=== PATIENT | female | born 1945 | race Caucasian/White ===

== ENCOUNTER 2018-01-21 10:55 | Emergency (ER) | payer MEDICARE, MEDICAID ==
[~2018-01-21] VITALS: Ht 172.7 cm; Wt 148.6 kg
[~2018-01-21 10:55] MED LIST: ASPI-515 PO; B 12 PO; BUPR100T6 PO; BUPR300T49 PO; FLUC200T4 PO; HYDR-3343 PO; LEVO50TA PO; LEVO75TA5 PO; LOSA25TA5 PO; OMEP20TA62 PO; POTA10CA PO; SERT25TA PO; SIMV20TA PO; SULF1TAB24 PO; THYR30TA PO; TRAM50TA2 PO; ZOLP-413 PO
[2018-01-21] MEDS ORDERED: ALBUTEROL/IPRATROPIUM 2.5MG/0.5MG, 3 ML NPPB ONE (12:00)
[2018-01-21 12:36] LABS: RAPID INFLUENZA A Negative (Negative); RAPID INFLUENZA B Negative (Negative)
[2018-01-21 13:04] LABS: BASOPHILS # (AUTO) 0.03 x10^3/uL (0-0.1); BASOPHILS % (AUTO) 0 % (0-1); EOSINOPHILS % (AUTO) 2 % (1-7); LYMPHOCYTES # (AUTO) 1.47 x10^3/uL (1-3.4); LYMPHOCYTES % (AUTO) 14 % (22-44); MD NO; MEAN CORPUSCULAR HEMOGLOBIN 26.5 pg (27.0-34.8); MEAN CORPUSCULAR HGB CONC 32.8 g/dL (32.4-35.8); MEAN CORPUSCULAR VOLUME 80.6 fL (80-100); MEAN PLATELET VOLUME 10.2 fL (7.4-10.4); MONOCYTES # (AUTO) 0.49 x10^3/uL (0.2-0.8); MONOCYTES % (AUTO) 5 % (2-9); NEUTROPHILS # (AUTO) 8.42 x10^3/uL (1.8-6.8); NEUTROPHILS % (AUTO) 79 % (42-75); PLATELET COUNT 293 x10^3/uL (130-400); RED BLOOD COUNT 4.36 x10^6/uL (3.82-5.3); RED CELL DISTRIBUTION WIDTH 18.1 % (9.6-15.2)
[2018-01-21] MEDS ORDERED: ALBUTEROL/IPRATROPIUM 2.5MG/0.5MG, 3 ML ONE (13:06)
[2018-01-21 13:16] LABS: ALBUMIN 3.1 g/dL (3.4-5.0); ANION GAP 8 mmol/L (5-15); CALCIUM 8.2 mg/dL (8.5-10.1); CHLORIDE 103 mmol/L (98-107)
[2018-01-21 13:23] LABS: ALANINE AMINOTRANSFERASE 14 U/L (12-78); ALKALINE PHOSPHATASE 99 U/L (45-117); BILIRUBIN,TOTAL 0.6 mg/dL (0.2-1.0); CREATININE 1.22 mg/dL (0.55-1.02); TOTAL PROTEIN 8.2 g/dL (6.4-8.2)
[2018-01-21 14:02] VITALS: BP 153/63
== END 2018-01-21 14:12 | disposition home or self-care (01) ==
LOC: ED 14:01
DX: J98.01 Acute bronchospasm (principal); J18.1 Lobar pneumonia, unspecified organism; I10 Essential (primary) hypertension; K21.9 Gastro-esophageal reflux disease without esophagitis
CPT/HCPCS: 36415; 71046; 80053; 83880; 85025; 87081; 87400; 87880; 94640; 99285; J7620

== ENCOUNTER 2018-07-10 20:36 | Emergency (ER) | payer MEDICARE, MEDICAID ==
[~2018-07-10] VITALS: Ht 170.2 cm; Wt 130.0 kg
[2018-07-10 22:10] LABS: BASOPHILS # (AUTO) 0.03 x10^3/uL (0-0.1); BASOPHILS % (AUTO) 0 % (0-1); EOSINOPHILS # (AUTO) 0.09 x10^3/uL (0-0.4); EOSINOPHILS % (AUTO) 1 % (1-7); LYMPHOCYTES % (AUTO) 11 % (22-44); MD NO; MEAN CORPUSCULAR HEMOGLOBIN 27.1 pg (27.0-34.8); MEAN CORPUSCULAR HGB CONC 32.9 g/dL (32.4-35.8); MEAN CORPUSCULAR VOLUME 82.6 fL (80-100); MEAN PLATELET VOLUME 10.8 fL (7.4-10.4); MONOCYTES % (AUTO) 6 % (2-9); NEUTROPHILS % (AUTO) 81 % (42-75); PLATELET COUNT 202 x10^3/uL (130-400); RED BLOOD COUNT 3.91 x10^6/uL (3.82-5.3); RED CELL DISTRIBUTION WIDTH 17.4 % (9.6-15.2)
[2018-07-10 22:14] LABS: ALANINE AMINOTRANSFERASE 11 U/L (12-78); ALBUMIN 2.9 g/dL (3.4-5.0); ANION GAP 6 mmol/L (5-15); CALCIUM 8.4 mg/dL (8.5-10.1); CHLORIDE 105 mmol/L (98-107); CREATININE 1.23 mg/dL (0.55-1.02)
[2018-07-10 22:18] LABS: ALKALINE PHOSPHATASE 64 U/L (45-117); BILIRUBIN,TOTAL 1.2 mg/dL (0.2-1.0); TOTAL PROTEIN 6.9 g/dL (6.4-8.2); TROPONIN I < 0.015 ng/mL (0.000-0.045)
[2018-07-10] MEDS ORDERED: OMNIPAQUE 350 MG/ML, 100ML BOTTLE ONE (22:58)
[2018-07-11 00:58] VITALS: BP 143/51
== END 2018-07-11 01:00 | disposition home or self-care (01) ==
LOC: ED 07-11 00:54
DX: R42 Dizziness and giddiness (principal); E03.9 Hypothyroidism, unspecified; K21.9 Gastro-esophageal reflux disease without esophagitis; I10 Essential (primary) hypertension; F32.9 Major depressive disorder, single episode, unspecified
CPT/HCPCS: 36415; 70450; 70496; 70498; 80053; 84484; 85025; 93005; 99285; Q9967

== ENCOUNTER 2019-02-08 07:50 | Emergency (ER) | payer MEDICARE, MEDICAID ==
[~2019-02-08] VITALS: Ht 172.7 cm; Wt 158.8 kg
[~2019-02-08 07:50] MED LIST changes: +LOSA25TA25 PO; -LOSA25TA5 PO
[2019-02-08 08:36] LABS: BASOPHILS # (AUTO) 0.04 x10^3/uL (0-0.1); BASOPHILS % (AUTO) 1 % (0-1); EOSINOPHILS # (AUTO) 0.68 x10^3/uL (0-0.4); EOSINOPHILS % (AUTO) 8 % (1-7); LYMPHOCYTES # (AUTO) 2.12 x10^3/uL (1-3.4); LYMPHOCYTES % (AUTO) 26 % (22-44); MD NO; MEAN CORPUSCULAR HEMOGLOBIN 24.9 pg (27.0-34.8); MEAN CORPUSCULAR HGB CONC 31.4 g/dL (32.4-35.8); MEAN CORPUSCULAR VOLUME 79.5 fL (80-100); MEAN PLATELET VOLUME 9.3 fL (7.4-10.4); MONOCYTES # (AUTO) 0.61 x10^3/uL (0.2-0.8); MONOCYTES % (AUTO) 8 % (2-9); NEUTROPHILS # (AUTO) 4.68 x10^3/uL (1.8-6.8); NEUTROPHILS % (AUTO) 58 % (42-75); PLATELET COUNT 270 x10^3/uL (130-400); RED BLOOD COUNT 4.01 x10^6/uL (3.82-5.3); RED CELL DISTRIBUTION WIDTH 19.4 % (9.6-15.2)
--- NOTE | 2019-02-08 08:41 | NUR ---
Pt presents to ED with c/o cough, dizziness, history of falls, and lower leg swelling. Pt states she has a history of Afib that is not being treated or monitored by cardiology. Pt is resting on gurney in yellow gown and is connected to all monitors. Pt has call light within reach. PIV established, labs drawn, and EKG done. X-ray at bedside now. NADN. Pt is AOx4, has unlabored respirations equal bilaterally, and cms is intact. Pt denies chest pain, n/v/d, or trauma. All safety measures are in place. Call light within reach. Provided warm blanket for comfort measures.
[2019-02-08 08:52] LABS: ALANINE AMINOTRANSFERASE 12 U/L (12-78); ALBUMIN 3.3 g/dL (3.4-5.0); ANION GAP 6 mmol/L (5-15); CALCIUM 8.4 mg/dL (8.5-10.1); CHLORIDE 111 mmol/L (98-107)
[2019-02-08 08:57] LABS: ALKALINE PHOSPHATASE 97 U/L (45-117); BILIRUBIN,TOTAL 0.3 mg/dL (0.2-1.0); CREATININE 1.24 mg/dL (0.55-1.02); TOTAL PROTEIN 7.4 g/dL (6.4-8.2)
[2019-02-08] MEDS ORDERED: BUPR300T49 PO (09:45)
[2019-02-08] MEDS ORDERED: QUET50TA5 PO (09:45)
[2019-02-08] MEDS ORDERED: DESV50TA PO (09:45)
[2019-02-08] MEDS ORDERED: SIMV20TA3 PO (09:45)
[2019-02-08 09:47] VITALS: BP 103/61
--- NOTE | 2019-02-08 11:01 | NUR ---
Patient given discharge instructions and they have confirmed that they understand the instructions. Patient pushed in wheelchair to discharge desk. Pt steady gait and balance with personal cane. Pt left with discharge paperwork and all personal belongings.
== END 2019-02-08 11:04 | disposition home or self-care (01) ==
LOC: ED 09:01
DX: I11.0 Hypertensive heart disease with heart failure (principal); I50.9 Heart failure, unspecified; D64.9 Anemia, unspecified; E03.9 Hypothyroidism, unspecified; F32.9 Major depressive disorder, single episode, unspecified
CPT/HCPCS: 36415; 71045; 80053; 83880; 85025; 93005; 99284

== ENCOUNTER 2019-03-28 00:36 | Inpatient (IN) | payer MEDICARE, MEDICAID ==
[~2019-03-28] VITALS: Ht 172.7 cm; Wt 159.9 kg
[~2019-03-28 00:36] MED LIST changes: +DESV50TA PO; +QUET50TA5 PO; +SIMV20TA3 PO
--- NOTE | 2019-03-28 00:50 | NUR ---
PT BIB [facility] WITH THE COMPLAINT OF SOB X2 WEEKS, EXACERBATED WITH EXERTION. PT COMPLAINS OF ASSOCIATED COUGH WITH CLEAR PHLEGM. PT WAS RECENTLY SEEN AT [facility] FOR COUGH. PT PRESENTS WITH INCREASED WORK OF BREATHING AND AUDITORY WHEEZES. [facility] STATES THAT ONE ALBUTEROL TX WAS ADMINISTERED EN ROUTE. PT DENIES CP, N/V. PT CONNECTED TO BP, SPO2 AND HEART MONITOR. PT'S AOX4. RESPS EVEN AND UNLABORED. AWAITING ORDERES.
[2019-03-28] MEDS ORDERED: ALBUTEROL/IPRATROPIUM 2.5MG/0.5MG, 3 ML ONE (01:14)
[2019-03-28] MEDS ORDERED: ALBUTEROL/IPRATROPIUM 2.5MG/0.5MG, 3 ML NPPB ONE (01:30)
--- NOTE | 2019-03-28 01:30 | NUR ---
RT AT BEDSIDE AT THIS TIME.
[2019-03-28 01:36] LABS: BASOPHILS # (AUTO) 0.01 x10^3/uL (0-0.1); BASOPHILS % (AUTO) 0 % (0-1); EOSINOPHILS # (AUTO) 1.01 x10^3/uL (0-0.4); EOSINOPHILS % (AUTO) 11 % (1-7); LYMPHOCYTES # (AUTO) 1.98 x10^3/uL (1-3.4); LYMPHOCYTES % (AUTO) 22 % (22-44); MD NO; MEAN CORPUSCULAR HEMOGLOBIN 25.7 pg (27.0-34.8); MEAN CORPUSCULAR HGB CONC 32.4 g/dL (32.4-35.8); MEAN CORPUSCULAR VOLUME 79.4 fL (80-100); MEAN PLATELET VOLUME 9.8 fL (7.4-10.4); MONOCYTES # (AUTO) 0.52 x10^3/uL (0.2-0.8); MONOCYTES % (AUTO) 6 % (2-9); NEUTROPHILS # (AUTO) 5.66 x10^3/uL (1.8-6.8); NEUTROPHILS % (AUTO) 62 % (42-75); PLATELET COUNT 257 x10^3/uL (130-400); RED BLOOD COUNT 4.09 x10^6/uL (3.82-5.3); RED CELL DISTRIBUTION WIDTH 18.1 % (9.6-15.2)
--- NOTE | 2019-03-28 01:45 | NUR ---
PT MEDICATED PER EMAR. PT TOLERATED WELL.
[2019-03-28 01:46] LABS: ALBUMIN 3.1 g/dL (3.4-5.0); ANION GAP 4 mmol/L (5-15); CALCIUM 8.5 mg/dL (8.5-10.1); CHLORIDE 108 mmol/L (98-107)
[2019-03-28 01:51] LABS: ALANINE AMINOTRANSFERASE 12 U/L (12-78); ALKALINE PHOSPHATASE 83 U/L (45-117); BILIRUBIN,TOTAL 0.4 mg/dL (0.2-1.0); TROPONIN I < 0.015 ng/mL (0.000-0.045)
--- NOTE | 2019-03-28 02:46 | NUR ---
PT RESTING IN [facility]. ALL MONITORS IN PLACE. CALL LIGHT WITHIN REACH,
[2019-03-28] MEDS ORDERED: POTASSIUM CHLORIDE 20 MEQ TAB.ER.PRT PO ONE (03:30)
[2019-03-28] MEDS ORDERED: FUROSEMIDE 20 MG/2 ML IV ONE (03:30)
[2019-03-28] MEDS ORDERED: FUROSEMIDE 20 MG/2 ML ONE (03:43)
[2019-03-28] MEDS ORDERED: POTASSIUM CHLORIDE 20 MEQ TAB.ER.PRT ONE (03:43)
[2019-03-28] MEDS ORDERED: DOCU100C33 PO (03:53)
[2019-03-28] MEDS ORDERED: DOXY100T PO (03:53)
[2019-03-28] MEDS ORDERED: ESCI20TA PO (03:54)
[2019-03-28] MEDS ORDERED: FLUC150T2 PO (03:55)
[2019-03-28] MEDS ORDERED: FERR324T13 PO (03:55)
[2019-03-28] MEDS ORDERED: ASCO1TAB15 PO (03:56)
[2019-03-28] MEDS ORDERED: LIDO700A20 TD (03:57)
[2019-03-28] MEDS ORDERED: NITR100C6 PO (03:58)
[2019-03-28] MEDS ORDERED: VITAMIN K (03:58)
--- NOTE | 2019-03-28 04:08 | NUR ---
PT MEDICATED PER EMAR. PT TOLERATED WELL. HOSPITALIST AT BEDSIDE NOW.
[2019-03-28] MEDS ORDERED: ALBUTEROL/IPRATROPIUM 2.5MG/0.5MG, 3 ML HHN PRN (04:30)
[2019-03-28] MEDS ORDERED: ASPIRIN 325 MG TABLET EC ONE (04:56)
[2019-03-28] MEDS ORDERED: ASPIRIN 325 MG TABLET EC PO ONE (05:00)
--- NOTE | 2019-03-28 05:05 | NUR ---
FLU SWAB COLLECTED BY THIS RN. PT TOLERATED WELL.
--- NOTE | 2019-03-28 05:35 | NUR ---
PT AMB TO BR WITH STEADY GAIT.
[2019-03-28] MEDS ORDERED: ASPIRIN 81 MG TABLET EC PO SCH (06:00)
[2019-03-28 06:04] LABS: RAPID INFLUENZA A Negative (Negative); RAPID INFLUENZA B Negative (Negative)
--- NOTE | 2019-03-28 06:05 | NUR ---
MEDICATION ORDERED FROM PHARMACY NOW.
[2019-03-28] MEDS: LEVOTHYROXINE 50 MCG TABLET PO SCH (06:23)
--- NOTE | 2019-03-28 06:25 | NUR ---
PT MEDICATED PER EMAR. PT TOLERATED WELL
--- NOTE | 2019-03-28 06:53 | NUR ---
throat pain/coughing x 3 days
--- NOTE | 2019-03-28 06:54 | NUR ---
REPORT GIVEN TO ARMANDO WILL.
--- NOTE | 2019-03-28 06:54 | NUR ---
Sandra machuca in [facility] - 03/28/19 at 0654 by MERRILL throat pain/coughing x 3 days
--- NOTE | 2019-03-28 07:00 | NUR ---
Pt awake, resting comfortably. Pt denies pain or SOB at this time- is hungry, but after checking orders pt is NPO. Waiting on room assignment.
--- NOTE | 2019-03-28 07:13 | NUR ---
Rm [id number] assigned. Pt updated, waiting for nurse to call report.
--- NOTE | 2019-03-28 07:30 | NUR ---
Tele floor called, nurse will call back in 5 min for report.
--- NOTE | 2019-03-28 07:43 | NUR ---
Report to SUMAN Wong. Pt ready for transport to tele.
--- NOTE | 2019-03-28 07:54 | NUR ---
Pt OOB to restroom prior to transport. Was very slow moving & moderately dizzy & SOB from exertion. Phone call to [facility] to update.
[2019-03-28 09:08] VITALS: BP 138/79
[2019-03-28 09:56] LABS: TROPONIN I < 0.015 ng/mL (0.000-0.045)
[2019-03-28 17:44] LABS: ALBUMIN 3.1 g/dL (3.4-5.0)
[2019-03-28 17:58] LABS: TOTAL PROTEIN 7.6 g/dL (6.4-8.2)
[2019-03-28] MEDS ORDERED: TRAM50TA2 PO (20:03)
[2019-03-28 20:12] VITALS: BP 146/94
[2019-03-28] MEDS: OMEPRAZOLE 20 MG CAPSULE.DR PO SCH (20:49)
[2019-03-28] MEDS: ZOLPIDEM 5MG TABLET PO PRN (21:34)
[2019-03-29 01:26] VITALS: BP 163/91
[2019-03-29 02:45] VITALS: BP 155/88
[2019-03-29] MEDS: ACETAMINOPHEN 325 MG TABLET PO PRN (02:45)
[2019-03-29] MEDS ORDERED: DIPHENHYDRAMINE 25 MG CAPSULE PO ONE (03:00)
[2019-03-29 05:57] LABS: BASOPHILS # (AUTO) 0.03 x10^3/uL (0-0.1); BASOPHILS % (AUTO) 0 % (0-1); EOSINOPHILS % (AUTO) 2 % (1-7); LYMPHOCYTES # (AUTO) 1.68 x10^3/uL (1-3.4); LYMPHOCYTES % (AUTO) 17 % (22-44); MD NO; MEAN CORPUSCULAR HEMOGLOBIN 25.3 pg (27.0-34.8); MEAN CORPUSCULAR HGB CONC 31.7 g/dL (32.4-35.8); MEAN CORPUSCULAR VOLUME 79.7 fL (80-100); MEAN PLATELET VOLUME 10.2 fL (7.4-10.4); MONOCYTES # (AUTO) 0.72 x10^3/uL (0.2-0.8); MONOCYTES % (AUTO) 7 % (2-9); NEUTROPHILS # (AUTO) 7.27 x10^3/uL (1.8-6.8); NEUTROPHILS % (AUTO) 74 % (42-75); PLATELET COUNT 246 x10^3/uL (130-400); RED BLOOD COUNT 3.89 x10^6/uL (3.82-5.3); RED CELL DISTRIBUTION WIDTH 18.4 % (9.6-15.2)
[2019-03-29 06:08] LABS: ANION GAP 7 mmol/L (5-15); CALCIUM 8.9 mg/dL (8.5-10.1); CHLORIDE 105 mmol/L (98-107)
[2019-03-29 06:10] LABS: CREATININE 1.09 mg/dL (0.55-1.02)
[2019-03-29] MEDS: OMEPRAZOLE 20 MG CAPSULE.DR PO SCH (06:30)
[2019-03-29] MEDS: LEVOTHYROXINE 50 MCG TABLET PO SCH (06:31)
[2019-03-29] MEDS: ASPIRIN 81 MG TABLET EC PO SCH (06:31)
[2019-03-29 06:47] VITALS: BP 138/85
[2019-03-29 15:18] VITALS: BP 145/89
[2019-03-29 18:39] VITALS: BP 124/77
[2019-03-29] MEDS: ZOLPIDEM 5MG TABLET PO PRN (23:28)
[2019-03-30 00:06] VITALS: BP 139/70
[2019-03-30] MEDS: ASPIRIN 81 MG TABLET EC PO SCH (06:12)
[2019-03-30] MEDS: OMEPRAZOLE 20 MG CAPSULE.DR PO SCH (06:12)
[2019-03-30] MEDS: LEVOTHYROXINE 50 MCG TABLET PO SCH (06:12)
[2019-03-30] MEDS ORDERED: OMNIPAQUE 350 MG/ML, 100ML BOTTLE ONE (06:53)
[2019-03-30 07:49] VITALS: BP 133/81
[2019-03-30] MEDS: CEFTRIAXONE PMX 1GM/50ML 50 ML IV SCH (10:28)
[2019-03-30] MEDS: DOXYCYCLINE 100 MG in DEXTROSE 5% 250 ML IV SCH ×2 (11:53→23:15)
[2019-03-30 12:10] VITALS: BP 124/79
[2019-03-30 13:12] LABS: BASOPHILS # (AUTO) 0.03 x10^3/uL (0-0.1); BASOPHILS % (AUTO) 0 % (0-1); EOSINOPHILS # (AUTO) 0.85 x10^3/uL (0-0.4); EOSINOPHILS % (AUTO) 11 % (1-7); LYMPHOCYTES # (AUTO) 1.27 x10^3/uL (1-3.4); LYMPHOCYTES % (AUTO) 17 % (22-44); MD NO; MEAN CORPUSCULAR HGB CONC 31.5 g/dL (32.4-35.8); MEAN CORPUSCULAR VOLUME 79.5 fL (80-100); MEAN PLATELET VOLUME 9.9 fL (7.4-10.4); MONOCYTES # (AUTO) 0.46 x10^3/uL (0.2-0.8); MONOCYTES % (AUTO) 6 % (2-9); NEUTROPHILS # (AUTO) 4.93 x10^3/uL (1.8-6.8); NEUTROPHILS % (AUTO) 65 % (42-75); PLATELET COUNT 249 x10^3/uL (130-400); RED BLOOD COUNT 4.07 x10^6/uL (3.82-5.3); RED CELL DISTRIBUTION WIDTH 18.5 % (9.6-15.2)
[2019-03-30 13:20] LABS: ALBUMIN 2.8 g/dL (3.4-5.0); ANION GAP 6 mmol/L (5-15); CALCIUM 8.5 mg/dL (8.5-10.1); CHLORIDE 105 mmol/L (98-107); CREATININE 1.07 mg/dL (0.55-1.02)
[2019-03-30] MEDS ORDERED: LIDODERM 5% PATCH TD SCH (15:30)
[2019-03-30 19:14] VITALS: BP 138/70
[2019-03-30] MEDS ORDERED: OMEPRAZOLE 20 MG CAPSULE.DR PO SCH ×3 (19:28→21:00)
[2019-03-30] MEDS ORDERED: LOSARTAN 50MG TABLET PO SCH (21:00)
[2019-03-30] MEDS ORDERED: SIMVASTATIN 20 MG TABLET PO SCH (21:00)
[2019-03-30] MEDS ORDERED: QUETIAPINE 25MG TABLET PO SCH (21:00)
[2019-03-30] MEDS: ZOLPIDEM 5MG TABLET PO PRN (23:15)
[2019-03-30] MEDS: ACETAMINOPHEN 325 MG TABLET PO PRN (23:55)
[2019-03-31 00:16] VITALS: BP 145/81
[2019-03-31] MEDS ORDERED: LEVOTHYROXINE 50 MCG TABLET PO SCH (06:00)
[2019-03-31 07:45] VITALS: BP 114/72
[2019-03-31] MEDS ORDERED: TEMPLATE NON-FORMULARY MED. (Desvenlafaxine Succinate** (Pristiq Er**) 50 MG) PO SCH (09:00)
[2019-03-31] MEDS ORDERED: CYANOCOBALAMIN 1,000 MCG TABLET PO SCH (09:00)
[2019-03-31] MEDS ORDERED: FERROUS GLUCONATE 324 MG TABLET PO SCH (09:00)
[2019-03-31] MEDS ORDERED: TEMPLATE NON-FORMULARY MED. (Bupropion Hcl** (Wellbutrin Xl**) 300 MG) PO SCH (09:00)
[2019-03-31] MEDS ORDERED: DOCUSATE 100 MG CAPSULE PO SCH (09:00)
[2019-03-31] MEDS ORDERED: CITALOPRAM 20 MG TABLET PO SCH (09:00)
[2019-03-31] MEDS ORDERED: VITAMIN E PO SCH (09:00)
[2019-03-31] MEDS ORDERED: ASPIRIN 81 MG TABLET EC PO SCH (09:00)
[2019-03-31] MEDS ORDERED: ASCORBIC ACID PO SCH (09:00)
[2019-03-31] MEDS ORDERED: [UNRECOGNIZED DRUG - OTHER] PO SCH (09:00)
[2019-03-31] MEDS ORDERED: BIOTIN PO SCH (09:00)
[2019-03-31] MEDS: CEFTRIAXONE PMX 1GM/50ML 50 ML IV SCH (10:43)
[2019-03-31] MEDS: DOXYCYCLINE 100 MG in DEXTROSE 5% 250 ML IV SCH (10:45)
[2019-03-31] MEDS ORDERED: CEFD300C37 PO (11:56)
[2019-03-31] MEDS ORDERED: DOXY100T9 PO (11:56)
[2019-03-31] MEDS ORDERED: CEFDINIR 300 MG CAPSULE PO ONE (12:30)
[2019-03-31] MEDS ORDERED: DOXYCYCLINE 100MG TABLET PO ONE (12:30)
[2019-03-31 13:04] VITALS: BP 117/90
== END 2019-03-31 15:46 | DRG 291 ==
LOC: ED 01:33 → EDIP 03:38 → 5SO 07:44
PROVIDERS: ADMIT Internal Medicine; ATTEND Internal Medicine
PROC: 0W993ZZ Drainage of Right Pleural Cavity, Percutaneous Approach (ICD-10-PCS; 2019-03-28)
PROC: 5A09357 Assistance with Respiratory Ventilation, Less than 24 Consecutive Hours, Continuous Positive Airway Pressure (ICD-10-PCS; 2019-03-30)
PROC: 5A09357 Assistance with Respiratory Ventilation, Less than 24 Consecutive Hours, Continuous Positive Airway Pressure (ICD-10-PCS; principal; 2019-03-31)
DX: I13.0 Hypertensive heart and chronic kidney disease with heart failure and stage 1 through stage 4 chronic kidney disease, or unspecified chronic kidney disease (principal); J96.01 Acute respiratory failure with hypoxia; J98.11 Atelectasis; J91.8 Pleural effusion in other conditions classified elsewhere; J06.9 Acute upper respiratory infection, unspecified; I48.0 Paroxysmal atrial fibrillation; D72.1 Eosinophilia; E03.9 Hypothyroidism, unspecified; E78.5 Hyperlipidemia, unspecified; G47.33 Obstructive sleep apnea (adult) (pediatric); I48.2 Chronic atrial fibrillation; I50.9 Heart failure, unspecified; K44.9 Diaphragmatic hernia without obstruction or gangrene; K21.9 Gastro-esophageal reflux disease without esophagitis; N18.9 Chronic kidney disease, unspecified; Z79.82 Long term (current) use of aspirin; Z79.890 Hormone replacement therapy; Z79.899 Other long term (current) drug therapy; Z88.2 Allergy status to sulfonamides; Z88.8 Allergy status to other drugs, medicaments and biological substances; Z87.891 Personal history of nicotine dependence; Z90.49 Acquired absence of other specified parts of digestive tract; Z88.0 Allergy status to penicillin
CPT/HCPCS: 32555; 36415; 36600; 71045; 71250; 71275; 80048; 80053; 82040; 82803; 82945; 82947; 83605; 83615; 83880; 83986; 84145; 84155; 84157; 84484; 85025; 86632; 86738; 87070; 87075; 87081; 87205; 87400; 88112; 88305; 88341; 88342; 89051; 93005; 93306; 94640; 96374; G0378; J0696; J7060; J7620; Q9967; J1940; J7512; Q0163

== ENCOUNTER 2019-12-10 12:59 | Inpatient (IN) | payer MEDICARE, MEDICAID ==
[~2019-12-10] VITALS: Ht 172.7 cm; Wt 154.0 kg
[~2019-12-10 12:59] MED LIST changes: +ASCO1TAB15 PO; +CEFD300C37 PO; +DOCU100C33 PO; +DOXY-162 PO; +DOXY100T PO; +ESCI20TA PO; +FERR324T13 PO; +FLUC150T2 PO; +LIDO700A20 TD; +NITR100C6 PO; +VITAMIN K
--- NOTE | 2019-12-10 13:17 | NUR ---
george. report received from ems. pt c/o flu like symptoms x 10days. she went to [place] this week and dc. denies n/v/d. pt's aox4. resps even and unlabored. bp/spo2 monitors in place. call light within reach.
--- NOTE | 2019-12-10 13:35 | NUR ---
LAB/XRAY IN ROOM
[2019-12-10 13:41] LABS: BASOPHILS # (AUTO) 0.03 x10^3/uL (0-0.1); BASOPHILS % (AUTO) 1 % (0-1); EOSINOPHILS # (AUTO) 0.16 x10^3/uL (0-0.4); EOSINOPHILS % (AUTO) 4 % (1-7); LYMPHOCYTES # (AUTO) 0.61 x10^3/uL (1-3.4); LYMPHOCYTES % (AUTO) 15 % (22-44); MD NO; MEAN CORPUSCULAR HEMOGLOBIN 25.1 pg (27.0-34.8); MEAN CORPUSCULAR HGB CONC 31.9 g/dL (32.4-35.8); MEAN CORPUSCULAR VOLUME 78.8 fL (80-100); MEAN PLATELET VOLUME 9.1 fL (7.4-10.4); MONOCYTES # (AUTO) 0.51 x10^3/uL (0.2-0.8); MONOCYTES % (AUTO) 12 % (2-9); NEUTROPHILS # (AUTO) 2.85 x10^3/uL (1.8-6.8); NEUTROPHILS % (AUTO) 69 % (42-75); PLATELET COUNT 200 x10^3/uL (130-400); RED BLOOD COUNT 4.03 x10^6/uL (3.82-5.3); RED CELL DISTRIBUTION WIDTH 17.7 % (9.6-15.2)
[2019-12-10 13:48] LABS: ALANINE AMINOTRANSFERASE 19 U/L (12-78); ALBUMIN 3.1 g/dL (3.4-5.0); ANION GAP 9 mmol/L (5-15); CALCIUM 8.2 mg/dL (8.5-10.1); CHLORIDE 103 mmol/L (98-107); CREATININE 1.14 mg/dL (0.55-1.02)
[2019-12-10 13:53] LABS: ALKALINE PHOSPHATASE 85 U/L (45-117); BILIRUBIN,TOTAL 0.6 mg/dL (0.2-1.0); TOTAL PROTEIN 7.5 g/dL (6.4-8.2); TROPONIN I 0.021 ng/mL (0.000-0.045)
--- NOTE | 2019-12-10 13:57 | NUR ---
EKG DONE BY EMT AT THIS TIME.
[2019-12-10] MEDS ORDERED: SODIUM CHLORIDE FLUSH 10ML SYR IVF ONE (14:30)
--- NOTE | 2019-12-10 14:57 | NUR ---
PT IN CT NOW.
[2019-12-10] MEDS ORDERED: FUROSEMIDE 40 MG/4 ML IV ONE (15:00)
--- NOTE | 2019-12-10 15:23 | NUR ---
PT AMB TO BR WITH STEADY GAIT.
[2019-12-10] MEDS ORDERED: FUROSEMIDE 40 MG/4 ML ONE (15:24)
[2019-12-10] MEDS ORDERED: POTASSIUM (15:38)
--- NOTE | 2019-12-10 15:38 | NUR ---
PT MEDICATED PER EMAR. PT TOLERATED WELL. PT'S AOX4. RESPS EVEN AND UNLABORED.
--- NOTE | 2019-12-10 15:40 | NUR ---
HOSPITAL BED ORDERED FROM HOUSEKEEPING.
[2019-12-10] MEDS ORDERED: OMNIPAQUE 350 MG/ML, 100ML BOTTLE ONE (15:50)
--- NOTE | 2019-12-10 15:50 | NUR ---
PT AMB TO BR WITH STEADY GAIT.
--- NOTE | 2019-12-10 16:17 | NUR ---
HOSPITAL BED IN ROOM. PT RESTING IN HOSPITAL BED. PT'S AOX4. RESPS EVEN AND UNLABORED.
--- NOTE | 2019-12-10 16:20 | NUR ---
HOSPITALIST AT BEDSIDE AT THIS TIME.
[2019-12-10] MEDS: FUROSEMIDE 40 MG/4 ML IV SCH (16:30)
[2019-12-10] MEDS ORDERED: LABETALOL 5MG/ML, 20ML IVPush PRN (16:30)
[2019-12-10] MEDS ORDERED: hydrALAzine 20 MG/ML, 1ML IVPush PRN (16:30)
[2019-12-10] MEDS ORDERED: HEPARIN 5,000 UNITS/ML, 1ML ONE (16:49)
[2019-12-10] MEDS: HEPARIN 5,000 UNITS/ML, 1ML SQ SCH (16:51)
--- NOTE | 2019-12-10 16:53 | NUR ---
pt medicated per emar. pt tolerated well.
--- NOTE | 2019-12-10 17:04 | NUR ---
REPORT GIVEN TO ERNESTINA WILL. ALL QUESTIONS ANSWERED.
[2019-12-10 19:04] VITALS: BP 145/85
[2019-12-10] MEDS ORDERED: ZOLP-413 PO (19:43)
[2019-12-10 20:49] LABS: % IRON SATURATION 5 % (20-55); IRON LEVEL 24 mcg/dL (50-170); TOTAL IRON BINDING CAPACITY 499 mcg/dL (250-450)
[2019-12-10 20:52] LABS: TROPONIN I 0.022 ng/mL (0.000-0.045)
[2019-12-10] MEDS ORDERED: LEVOTHYROXINE 50 MCG TABLET PO SCH (21:00)
[2019-12-10] MEDS: SIMVASTATIN 20 MG TABLET PO SCH (23:42)
[2019-12-10] MEDS: OMEPRAZOLE 20 MG CAPSULE.DR PO SCH (23:42)
[2019-12-10] MEDS: ACETAMINOPHEN 325 MG TABLET PO PRN (23:42)
[2019-12-10] MEDS: LOSARTAN 25MG TABLET PO SCH (23:42)
[2019-12-10] MEDS: ZOLPIDEM 5MG TABLET PO SCH (23:45)
[2019-12-11 00:18] VITALS: BP 147/76
[2019-12-11] MEDS: HEPARIN 5,000 UNITS/ML, 1ML SQ SCH ×3 (00:53→16:42)
[2019-12-11] MEDS ORDERED: ALBU18HF INH (02:35)
[2019-12-11] MEDS ORDERED: FURO20TA3 PO (02:35)
[2019-12-11 05:03] LABS: BASOPHILS # (AUTO) 0.04 x10^3/uL (0-0.1); BASOPHILS % (AUTO) 1 % (0-1); EOSINOPHILS # (AUTO) 0.11 x10^3/uL (0-0.4); EOSINOPHILS % (AUTO) 3 % (1-7); LYMPHOCYTES # (AUTO) 1.21 x10^3/uL (1-3.4); LYMPHOCYTES % (AUTO) 34 % (22-44); MD NO; MEAN CORPUSCULAR HEMOGLOBIN 25.2 pg (27.0-34.8); MEAN CORPUSCULAR HGB CONC 31.9 g/dL (32.4-35.8); MEAN CORPUSCULAR VOLUME 78.9 fL (80-100); MEAN PLATELET VOLUME 10.1 fL (7.4-10.4); MONOCYTES # (AUTO) 0.58 x10^3/uL (0.2-0.8); MONOCYTES % (AUTO) 17 % (2-9); NEUTROPHILS # (AUTO) 1.58 x10^3/uL (1.8-6.8); NEUTROPHILS % (AUTO) 45 % (42-75); PLATELET COUNT 181 x10^3/uL (130-400); RED BLOOD COUNT 3.97 x10^6/uL (3.82-5.3); RED CELL DISTRIBUTION WIDTH 17.8 % (9.6-15.2)
[2019-12-11 05:09] LABS: ALBUMIN 2.9 g/dL (3.4-5.0); ANION GAP 9 mmol/L (5-15); CALCIUM 8.4 mg/dL (8.5-10.1); CHLORIDE 102 mmol/L (98-107)
[2019-12-11 05:16] LABS: CREATININE 1.12 mg/dL (0.55-1.02)
[2019-12-11 05:17] LABS: ALANINE AMINOTRANSFERASE 19 U/L (12-78); ALKALINE PHOSPHATASE 73 U/L (45-117); BILIRUBIN,TOTAL 0.5 mg/dL (0.2-1.0); TROPONIN I 0.042 ng/mL (0.000-0.045)
[2019-12-11 07:00] VITALS: BP 150/85
[2019-12-11] MEDS: CARVEDILOL 3.125 MG TABLET PO SCH ×2 (07:07→16:42)
[2019-12-11] MEDS: LEVOTHYROXINE 50 MCG TABLET PO SCH (07:07)
[2019-12-11] MEDS: FERROUS SULFATE 325 MG TABLET PO SCH ×3 (09:30→16:42)
[2019-12-11] MEDS: ASPIRIN 81 MG TABLET EC PO SCH (09:30)
[2019-12-11] MEDS: POTASSIUM CHLORIDE 20 MEQ TAB.ER.PRT PO SCH ×2 (09:31→11:51)
[2019-12-11] MEDS: FUROSEMIDE 40 MG/4 ML IV SCH ×2 (09:31→16:41)
[2019-12-11 11:20] LABS: TROPONIN I 0.031 ng/mL (0.000-0.045)
[2019-12-11] MEDS: ACETAMINOPHEN 325 MG TABLET PO PRN ×2 (11:50→20:59)
[2019-12-11 15:10] VITALS: BP 117/72
[2019-12-11] MEDS: DIPHENHYDRAMINE 25 MG CAPSULE PO PRN (17:56)
[2019-12-11] MEDS: SIMVASTATIN 20 MG TABLET PO SCH (20:45)
[2019-12-11] MEDS: OMEPRAZOLE 20 MG CAPSULE.DR PO SCH (20:45)
[2019-12-11] MEDS: ZOLPIDEM 5MG TABLET PO SCH (20:45)
[2019-12-11 20:56] VITALS: BP 137/92
[2019-12-11] MEDS: LOSARTAN 25MG TABLET PO SCH (20:59)
[2019-12-12] MEDS: HEPARIN 5,000 UNITS/ML, 1ML SQ SCH ×3 (00:53→17:47)
[2019-12-12 02:05] VITALS: BP 138/79
[2019-12-12 05:15] LABS: ANION GAP 8 mmol/L (5-15); CHLORIDE 101 mmol/L (98-107)
[2019-12-12 05:16] LABS: CREATININE 1.29 mg/dL (0.55-1.02)
[2019-12-12 06:01] VITALS: BP 134/84
[2019-12-12] MEDS: CARVEDILOL 3.125 MG TABLET PO SCH ×2 (06:03→17:48)
[2019-12-12] MEDS: LEVOTHYROXINE 50 MCG TABLET PO SCH (06:03)
[2019-12-12] MEDS: FUROSEMIDE 20 MG/2 ML IV SCH ×2 (06:36→17:48)
[2019-12-12] MEDS: POTASSIUM CHLORIDE 20 MEQ TAB.ER.PRT PO SCH ×2 (06:36→09:20)
[2019-12-12 06:52] VITALS: BP 133/81
[2019-12-12] MEDS ORDERED: MAGNESIUM SULFATE PMX 4GM/100M 100 ML IV ONE (09:00)
[2019-12-12] MEDS ORDERED: POTASSIUM CHLORIDE 20 MEQ TAB.ER.PRT PO SCH (09:00)
[2019-12-12] MEDS: FERROUS SULFATE 325 MG TABLET PO SCH ×3 (09:12→17:48)
[2019-12-12] MEDS: ASPIRIN 81 MG TABLET EC PO SCH (09:12)
[2019-12-12 12:20] VITALS: BP 123/75
[2019-12-12 20:27] VITALS: BP 144/83
[2019-12-12] MEDS: LOSARTAN 25MG TABLET PO SCH (20:29)
[2019-12-12] MEDS: OMEPRAZOLE 20 MG CAPSULE.DR PO SCH (20:29)
[2019-12-12] MEDS: APIXABAN 5 MG TABLET PO SCH (20:29)
[2019-12-12] MEDS: SIMVASTATIN 20 MG TABLET PO SCH (20:30)
[2019-12-12] MEDS: ACETAMINOPHEN 325 MG TABLET PO PRN (20:34)
[2019-12-12] MEDS: ZOLPIDEM 5MG TABLET PO SCH (20:47)
[2019-12-13] VITALS (7 sets, daily range): BP systolic 102–137; BP diastolic 71–84
[2019-12-13 04:52] LABS: BASOPHILS # (AUTO) 0.03 x10^3/uL (0-0.1); BASOPHILS % (AUTO) 1 % (0-1); EOSINOPHILS # (AUTO) 0.42 x10^3/uL (0-0.4); EOSINOPHILS % (AUTO) 9 % (1-7); LYMPHOCYTES # (AUTO) 1.59 x10^3/uL (1-3.4); LYMPHOCYTES % (AUTO) 34 % (22-44); MD NO; MEAN CORPUSCULAR HGB CONC 31.4 g/dL (32.4-35.8); MEAN CORPUSCULAR VOLUME 79.7 fL (80-100); MEAN PLATELET VOLUME 9.8 fL (7.4-10.4); MONOCYTES # (AUTO) 0.81 x10^3/uL (0.2-0.8); MONOCYTES % (AUTO) 17 % (2-9); NEUTROPHILS # (AUTO) 1.88 x10^3/uL (1.8-6.8); NEUTROPHILS % (AUTO) 40 % (42-75); PLATELET COUNT 194 x10^3/uL (130-400); RED BLOOD COUNT 4.38 x10^6/uL (3.82-5.3); RED CELL DISTRIBUTION WIDTH 18.2 % (9.6-15.2)
[2019-12-13 05:00] LABS: ALANINE AMINOTRANSFERASE 25 U/L (12-78); ALBUMIN 2.7 g/dL (3.4-5.0); ANION GAP 8 mmol/L (5-15); CALCIUM 8.1 mg/dL (8.5-10.1); CHLORIDE 101 mmol/L (98-107); CREATININE 1.35 mg/dL (0.55-1.02)
[2019-12-13 05:02] LABS: ALKALINE PHOSPHATASE 77 U/L (45-117); BILIRUBIN,TOTAL 0.3 mg/dL (0.2-1.0); TOTAL PROTEIN 7.3 g/dL (6.4-8.2)
[2019-12-13] MEDS: CARVEDILOL 3.125 MG TABLET PO SCH ×2 (05:45→17:31)
[2019-12-13] MEDS: LEVOTHYROXINE 50 MCG TABLET PO SCH (05:46)
[2019-12-13] MEDS: ASPIRIN 81 MG TABLET EC PO SCH (09:13)
[2019-12-13] MEDS: FERROUS SULFATE 325 MG TABLET PO SCH ×3 (09:13→17:31)
[2019-12-13] MEDS: APIXABAN 5 MG TABLET PO SCH ×2 (09:13→21:27)
[2019-12-13] MEDS: POTASSIUM CHLORIDE 20 MEQ TAB.ER.PRT PO SCH (09:13)
[2019-12-13] MEDS: FUROSEMIDE 20 MG/2 ML IV SCH ×2 (09:13→17:30)
[2019-12-13] MEDS: ACETAMINOPHEN 325 MG TABLET PO PRN ×3 (10:33→21:29)
[2019-12-13] MEDS: DIPHENHYDRAMINE 25 MG CAPSULE PO PRN (16:28)
[2019-12-13] MEDS: OMEPRAZOLE 20 MG CAPSULE.DR PO SCH (21:27)
[2019-12-13] MEDS: SIMVASTATIN 20 MG TABLET PO SCH (21:28)
[2019-12-13] MEDS: LOSARTAN 25MG TABLET PO SCH (21:28)
[2019-12-13] MEDS: ZOLPIDEM 5MG TABLET PO SCH (23:04)
[2019-12-14 05:10] VITALS: BP 127/80
[2019-12-14] MEDS: LEVOTHYROXINE 50 MCG TABLET PO SCH (05:14)
[2019-12-14] MEDS: CARVEDILOL 3.125 MG TABLET PO SCH ×2 (05:14→17:59)
[2019-12-14 06:57] VITALS: BP 116/76
[2019-12-14] MEDS: FUROSEMIDE 40 MG TABLET PO SCH ×2 (10:15→17:59)
[2019-12-14] MEDS: POTASSIUM CHLORIDE 20 MEQ TAB.ER.PRT PO SCH (10:15)
[2019-12-14] MEDS: ASPIRIN 81 MG TABLET EC PO SCH (10:16)
[2019-12-14] MEDS: FERROUS SULFATE 325 MG TABLET PO SCH ×3 (10:16→17:59)
[2019-12-14] MEDS: APIXABAN 5 MG TABLET PO SCH ×2 (10:16→20:10)
[2019-12-14 10:50] LABS: ANION GAP 7 mmol/L (5-15); CALCIUM 8.4 mg/dL (8.5-10.1); CHLORIDE 102 mmol/L (98-107); CREATININE 1.29 mg/dL (0.55-1.02)
[2019-12-14 12:10] VITALS: BP 144/82
[2019-12-14] MEDS ORDERED: MAGNESIUM SULFATE PMX 2GM/50ML 50 ML IV ONE (13:00)
[2019-12-14] MEDS: DESVENLAFAXINE PO SCH (13:23)
[2019-12-14] MEDS ORDERED: APIX5TAB PO (15:51)
[2019-12-14] MEDS ORDERED: POTA20TA6 PO (15:51)
[2019-12-14] MEDS ORDERED: FURO40TA6 PO (15:51)
[2019-12-14] MEDS ORDERED: FERR-51 PO (15:51)
[2019-12-14] MEDS ORDERED: CARV3.1212 PO (15:51)
[2019-12-14] MEDS ORDERED: MAGN400T26 PO (15:52)
[2019-12-14] MEDS: ACETAMINOPHEN 325 MG TABLET PO PRN (15:57)
[2019-12-14] MEDS ORDERED: DOXY100C15 PO (16:00)
[2019-12-14] MEDS ORDERED: CEFD300C37 PO (16:00)
[2019-12-14 20:00] VITALS: BP 121/77
[2019-12-14] MEDS: OMEPRAZOLE 20 MG CAPSULE.DR PO SCH (20:10)
[2019-12-14] MEDS: ZOLPIDEM 5MG TABLET PO SCH (20:11)
[2019-12-14] MEDS: LOSARTAN 25MG TABLET PO SCH (20:12)
[2019-12-14] MEDS: SIMVASTATIN 20 MG TABLET PO SCH (20:12)
[2019-12-14] MEDS: DIPHENHYDRAMINE 25 MG CAPSULE PO PRN (23:45)
[2019-12-15 01:19] VITALS: BP 115/80
[2019-12-15] MEDS: CARVEDILOL 3.125 MG TABLET PO SCH ×2 (05:37→17:02)
[2019-12-15] MEDS: LEVOTHYROXINE 50 MCG TABLET PO SCH (05:40)
[2019-12-15 06:23] LABS: ANION GAP 7 mmol/L (5-15); CALCIUM 8.9 mg/dL (8.5-10.1); CHLORIDE 100 mmol/L (98-107)
[2019-12-15 06:24] LABS: CREATININE 1.36 mg/dL (0.55-1.02)
[2019-12-15 09:31] VITALS: BP 112/72
[2019-12-15] MEDS: APIXABAN 5 MG TABLET PO SCH ×2 (09:51→20:05)
[2019-12-15] MEDS: ASPIRIN 81 MG TABLET EC PO SCH (09:51)
[2019-12-15] MEDS: FUROSEMIDE 40 MG TABLET PO SCH ×2 (09:51→17:02)
[2019-12-15] MEDS: POTASSIUM CHLORIDE 20 MEQ TAB.ER.PRT PO SCH (09:51)
[2019-12-15] MEDS: FERROUS SULFATE 325 MG TABLET PO SCH ×3 (09:52→17:02)
[2019-12-15] MEDS: DESVENLAFAXINE PO SCH (09:52)
[2019-12-15 11:00] VITALS: BP 133/85
[2019-12-15] MEDS: ACETAMINOPHEN 325 MG TABLET PO PRN (11:27)
[2019-12-15] MEDS ORDERED: ALBUTEROL SULFATE 2.5 MG/3 ML ONE (11:47)
[2019-12-15] MEDS: ALBUTEROL SULFATE 2.5 MG/3 ML NPPB PRN ×2 (11:52→15:54)
[2019-12-15] MEDS: GUAIFENESIN ER 600 MG TABLET PO SCH ×2 (12:59→20:05)
[2019-12-15 14:00] VITALS: BP 118/72
[2019-12-15] MEDS: CEFTRIAXONE PMX 2GM/50ML 50 ML IV SCH (15:29)
[2019-12-15] MEDS: AZITHROMYCIN 500 MG in SODIUM CHLORIDE 0.9% 250 ML IV SCH (16:59)
[2019-12-15 18:37] VITALS: BP 129/83
[2019-12-15] MEDS: LOSARTAN 25MG TABLET PO SCH (20:05)
[2019-12-15] MEDS: OMEPRAZOLE 20 MG CAPSULE.DR PO SCH (20:05)
[2019-12-15] MEDS: SIMVASTATIN 20 MG TABLET PO SCH (20:05)
[2019-12-15 20:08] VITALS: BP 126/69
[2019-12-16 01:11] VITALS: BP 121/79
[2019-12-16] MEDS: ACETAMINOPHEN 325 MG TABLET PO PRN (04:09)
[2019-12-16 05:58] VITALS: BP 137/83
[2019-12-16] MEDS: LEVOTHYROXINE 50 MCG TABLET PO SCH (06:00)
[2019-12-16] MEDS: CARVEDILOL 3.125 MG TABLET PO SCH (06:01)
[2019-12-16 07:05] VITALS: BP 128/84
[2019-12-16] MEDS: FERROUS SULFATE 325 MG TABLET PO SCH ×2 (08:00→11:01)
[2019-12-16] MEDS: DESVENLAFAXINE PO SCH (09:00)
[2019-12-16] MEDS: GUAIFENESIN ER 600 MG TABLET PO SCH (10:59)
[2019-12-16] MEDS: APIXABAN 5 MG TABLET PO SCH (10:59)
[2019-12-16] MEDS: ASPIRIN 81 MG TABLET EC PO SCH (10:59)
[2019-12-16] MEDS: FUROSEMIDE 40 MG TABLET PO SCH (11:00)
[2019-12-16] MEDS: POTASSIUM CHLORIDE 20 MEQ TAB.ER.PRT PO SCH (11:00)
[2019-12-16 14:40] VITALS: BP 113/70
[2019-12-16] MEDS ORDERED: DOXY100C15 PO (14:40)
[2019-12-16] MEDS: AZITHROMYCIN 500 MG in SODIUM CHLORIDE 0.9% 250 ML IV SCH (15:25)
[2019-12-16] MEDS: CEFTRIAXONE PMX 2GM/50ML 50 ML IV SCH (15:25)
== END 2019-12-16 16:47 | DRG 291 ==
LOC: ED 14:37 → EDIP 14:38 → ED 15:40 → 5SO 17:57
PROVIDERS: ADMIT Internal Medicine; ATTEND Internal Medicine
DX: I13.0 Hypertensive heart and chronic kidney disease with heart failure and stage 1 through stage 4 chronic kidney disease, or unspecified chronic kidney disease (principal); I50.33 Acute on chronic diastolic (congestive) heart failure; J69.0 Pneumonitis due to inhalation of food and vomit; J18.9 Pneumonia, unspecified organism; Z68.43 Body mass index [BMI] 50.0-59.9, adult; E46 Unspecified protein-calorie malnutrition; I47.2 Ventricular tachycardia; E83.42 Hypomagnesemia; I27.20 Pulmonary hypertension, unspecified; E87.6 Hypokalemia; I48.91 Unspecified atrial fibrillation; K21.9 Gastro-esophageal reflux disease without esophagitis; N18.3 Chronic kidney disease, stage 3 (moderate); R09.02 Hypoxemia; E03.9 Hypothyroidism, unspecified; D50.9 Iron deficiency anemia, unspecified; E66.01 Morbid (severe) obesity due to excess calories; E78.5 Hyperlipidemia, unspecified
CPT/HCPCS: 36415; 36600; 71045; 71275; 74230; 80048; 80053; 82728; 82803; 83540; 83550; 83735; 83880; 84100; 84145; 84443; 84484; 85025; 93005; 93306; 94640; 96374; G0378; J0456; J0696; J1644; J1940; J7613; Q9967; J3475; J7050; Q0163

== ENCOUNTER 2021-06-06 15:10 | Emergency (ER) | payer MEDICARE, MEDICAID ==
[~2021-06-06] VITALS: Ht 172.7 cm; Wt 160.0 kg
[~2021-06-06 15:10] MED LIST changes: +ACET325T26 PO; +ALBU18HF INH; +APIX5TAB PO; -ASPI-515 PO; +ASPI-963 PO; +CARV3.1212 PO; +DOXY-246 PO; -ESCI20TA PO; +ESCI20TA8 PO; +FERR-51 PO; +FURO20TA3 PO; +FURO40TA6 PO; +MAGN400T26 PO; +POTA20TA6 PO; +POTASSIUM; +PRED20TA PO; +SIMV20TA19 PO; -SIMV20TA3 PO; +SULF-23 PO; -SULF1TAB24 PO
--- NOTE | 2021-06-06 15:26 | NUR ---
BIBA, PT C/O BILATERAL LE SWELLING AND SOB. PER EMS PT WAS SEEN AT [facility] 4 DAYS AGO FOR SAME SX AND WANTED TO COME HERE TO "RECEIVE BETTER CARE". PT A&O, RESPS EVEN AND UNLABORED, VSS, ALL MONITORS ATTACHED, NADN.
--- NOTE | 2021-06-06 15:59 | NUR ---
hospice social worker at bedside
[2021-06-06 16:10] LABS: BASOPHILS % (AUTO) 1 % (0-1); EOSINOPHILS % (AUTO) 6 % (1-7); LYMPHOCYTES % (AUTO) 23 % (22-44); MEAN CORPUSCULAR HEMOGLOBIN 28.1 pg (27.0-34.8); MEAN CORPUSCULAR HGB CONC 32.7 g/dL (32.4-35.8); MEAN PLATELET VOLUME 9.7 fL (7.4-10.4); MONOCYTES % (AUTO) 7 % (2-9); NEUTROPHILS % (AUTO) 63 % (42-75); PLATELET COUNT 238 x10^3/uL (130-400); RED BLOOD COUNT 4.14 x10^6/uL (3.82-5.3); RED CELL DISTRIBUTION WIDTH 17.1 % (9.6-15.2)
[2021-06-06 16:22] LABS: ALANINE AMINOTRANSFERASE 15 U/L (12-78); ALBUMIN 3.2 g/dL (3.4-5.0); ANION GAP 2 mmol/L (5-15); CALCIUM 8.9 mg/dL (8.5-10.1); CHLORIDE 109 mmol/L (98-107); CREATININE 1.03 mg/dL (0.55-1.02)
[2021-06-06 16:26] LABS: ALKALINE PHOSPHATASE 66 U/L (45-117); BILIRUBIN,TOTAL 0.4 mg/dL (0.2-1.0); TOTAL PROTEIN 7.3 g/dL (6.4-8.2); TROPONIN I < 0.015 ng/mL (0.000-0.045)
--- NOTE | 2021-06-06 17:00 | NUR ---
PT ASSISTED TO VOID VIA BEDPAN, TOLERATED WELL. ALL MONITORS REMAIN IN PLACE. CALL LIGHT IN REACH. PT HAS NO COMPLAINT AT THIS TIME.
--- NOTE | 2021-06-06 18:16 | NUR ---
PT RESTING ON GURNEY, A&O, RESPS EVEN AND UNLABORED. NSR ON BOARD STACKER WITH NO ECTOPY. ALL RESULTS BACK, CHART UP FOR RECHECK. AWAITING MD AND DISPO.
--- NOTE | 2021-06-06 18:38 | NUR ---
ETTA العلي at bedside to update pt with results and poc.
--- NOTE | 2021-06-06 19:10 | NUR ---
bedside report given to dandre freitas
--- NOTE | 2021-06-06 19:12 | NUR ---
report given at bedside to SUMAN Brown. pt straight cath'd, sterile technique maintained. pt tolerated well. urine walked to lab by SUMAN Lal. bp and spo2 monitors in place. pt a&o, resps even and unlabored, no complaint at this time.
[2021-06-06 19:17] LABS: MICROSCOPIC NOT IND
--- NOTE | 2021-06-06 20:35 | NUR ---
pt able to ambulate with walker steady and baseline. pt states she lives by herself in a small apt and is able to do her day to day care independently
[2021-06-06 21:15] VITALS: BP 163/53
== END 2021-06-06 21:49 | disposition home or self-care (01) ==
LOC: ED 21:43
DX: R60.0 Localized edema (principal); I11.0 Hypertensive heart disease with heart failure; I50.9 Heart failure, unspecified; E80.6 Other disorders of bilirubin metabolism; R07.9 Chest pain, unspecified; K21.9 Gastro-esophageal reflux disease without esophagitis; E03.9 Hypothyroidism, unspecified; I48.91 Unspecified atrial fibrillation; Z91.14 Patient's other noncompliance with medication regimen; Z87.891 Personal history of nicotine dependence
CPT/HCPCS: 36415; 71045; 80053; 81003; 83880; 84484; 85025; 93005; 99285